=== PATIENT | female | born 1965 | race American Indian/Alaskan Native ===

== ENCOUNTER 2017-02-20 11:01 | Day surgery (SDC) | payer MEDICAID ==
[2017-02-13 09:16] VITALS: BMI 46.6
[2017-02-20] MEDS ORDERED: Propofol 10 mg/ml Inj (20 ML) ONE (11:24)
[2017-02-20] MEDS ORDERED: Sodium Chloride 0.9% 1,000 ML IV SCH (11:45)
[2017-02-20 14:50] VITALS: BP 143/90; PULSE 74; RESP 18; TEMP 98.5; O2SAT 98
== END 2017-02-20 15:36 | disposition home or self-care (01) ==
LOC: ENDO 11:01
PROVIDERS: ATTEND Internal Medicine
DX: Z12.13 Encounter for screening for malignant neoplasm of small intestine (principal); K57.30 Diverticulosis of large intestine without perforation or abscess without bleeding; E66.01 Morbid (severe) obesity due to excess calories; K29.70 Gastritis, unspecified, without bleeding
CPT/HCPCS: 43239; 45378; 82948; 84703; 88305; 88342; J2001; J2704; J3010; J7040